=== PATIENT | male | born 1950 | race American Indian/Alaskan Native ===

== ENCOUNTER 2017-02-26 15:18 | Emergency (ER) | payer BC ==
[2017-02-26 15:32] VITALS: TEMP 98.8; O2SAT 96; BMI 24.4
--- NOTE | 2017-02-26 16:08 | ED PDOC ---
Arrival/HPI - General Chief Complaint: Shortness Of Breath Time Seen by Provider: 02/26/17 15:30 Historian: Patient - History of Present Illness Narrative History of Present Illness (Text): 02/26/17 15:53 66 year old male with past medical history of hypertension, HIV , inguinal sarcoma s/p resection presents to [facility] ED today with shortness of breath. Patient reports his shortness of breath had been going on and off for several months. Patient does not have coughs or chest pain. The shortness of breath happens randomly, it is not associated with activity or positional changes. Patient underwent a stress test and a cardiac cath done recently by Dr. Adorno. Cardiac cath was done on 02/20/17 and the results were normal. Patient tried calling to make an appointment with his news clerk but the office was closed until 02/28/17, so patient decided to come to the ED to be evaluated. Patient's does not know his CD4 count, but he was last checked in September stating that his viral count was undetectable. Time/Duration: > month Symptom Course: Intermittent Context: Sitting Past Medical History - Provider Review Nursing Documentation Reviewed: Yes - Infectious Disease Hx of Infectious Diseases: None - Psychiatric Hx Substance Use: No - Anesthesia Hx Anesthesia: No Hx Anesthesia Reactions: No Hx Malignant Hyperthermia: No Family/Social History - Physician Review Nursing Documentation Reviewed: Yes Family/Social History: No Known Family HX Smoking Status: Former Smoker Hx Alcohol Use: Yes Frequency of alcohol use: Socially Hx Substance Use: No Allergies/Home Meds Allergies/Adverse Reactions: Allergies No Known Allergies Allergy (Unverified 02/26/17 15:51) Review of Systems - Physician Review All systems were reviewed & negative as marked: Yes - Review of Systems Constitutional: Normal. absent: Fatigue, Weight Change, Fevers Eyes: Normal. absent: Photophobia ENT: Normal Respiratory: SOB. absent: Cough, Wheezing Cardiovascular: Normal. absent: Chest Pain, Palpitations, Edema Gastrointestinal: Normal. absent: Abdominal Pain, Constipation, Diarrhea Genitourinary Male: Normal. absent: Dysuria, Frequency, Hematuria Musculoskeletal: Normal. absent: Back Pain Skin: Normal. absent: Rash, Pruritis, Skin Lesions Neurological: Normal. absent: Headache, Dizziness, Focal Weakness Endocrine: Normal. absent: Diaphoresis Hemo/Lymphatic: Normal Psychiatric: Normal. absent: Anxiety, Depression Physical Exam Vital Signs Reviewed: Yes Vital Signs Temp Pulse Resp BP Pulse Ox 02/26/17 15:25 98.8 F 78 16 127/81 96 02/26/17 15:19 98.8 F 78 16 127/81 96 Temperature: Afebrile Blood Pressure: Normal Pulse: Regular Respiratory Rate: Normal Appearance: Positive for: Well-Appearing, Non-Toxic, Comfortable Pain Distress: None Mental Status: Positive for: Alert and Oriented X 3 - Systems Exam Head: Present: Atraumatic, Normocephalic Pupils: Present: PERRL Extroacular Muscles: Present: EOMI Conjunctiva: Present: Normal Mouth: Present: Moist Mucous Membranes Pharnyx: Present: Normal Neck: Present: Normal Range of Motion Respiratory/Chest: Present: Clear to Auscultation, Good Air Exchange. No: Respiratory Distress Cardiovascular: Present: Regular Rate and Rhythm, Normal S1, S2. No: Murmurs Abdomen: Present: Normal Bowel Sounds. No: Tenderness, Distention, Peritoneal Signs Upper Extremity: Present: Normal Inspection. No: Cyanosis, Edema Lower Extremity: Present: Normal Inspection. No: Edema Neurological: Present: GCS=15, CN II-XII Intact, Speech Normal Skin: Present: Warm, Dry, Normal Color. No: Rashes Psychiatric: Present: Alert, Oriented x 3, Normal Insight, Normal Concentration Medical Decision Making ED Course and Treatment: 02/26/17 16:17 -CXR -EKG -Cardiac Iso -CBC, CMP -Reassess and disposition 02/26/17 16:50 Progress Note: patient's shortness of breath resolved. No current complaints. Recommended patient to follow up with Dr. Adorno for further cardiac workup. Re-evaluation Time: 16:40 Reassessment Condition: Improved - Lab Interpretations Lab Results: 02/26/17 16:07 02/26/17 16:07 Lab Results 02/26/17 16:07: Sodium 142, Potassium 4.3, Chloride 105, Carbon Dioxide 30, Anion Gap 11, BUN 13, Creatinine 1.1, Est GFR ( Amer) > 60, Est GFR (Non- Af Amer) > 60, Random Glucose 88, Calcium 9.3, Magnesium 2.1, Total Bilirubin 0.8, AST 26, ALT 26, Alkaline Phosphatase 67, Lactate Dehydrogenase 393, Total Creatine Kinase 75, Troponin I Pending, Total Protein 7.3, Albumin 3.7, Globulin 3.6, Albumin/Globulin Ratio 1.0 L 02/26/17 16:07: WBC 4.0 L, RBC 3.78, Hgb 13.1 L, Hct 38.7 L, MCV 102.4, MCH 34.7 , MCHC 33.9, RDW 12.5, Plt Count 126, MPV 11.3 H, Gran % 35.1 L, Lymph % (Auto) 54.7 H, [place] % (Auto) 8.7 H, Eos % (Auto) 1.0 L, Baso % (Auto) 0.5, Gran # 1.42 , Lymph # 2.2, [place] # 0.4, Eos # 0.0, Baso # 0.02 - RAD Interpretation Radiology Orders: 02/26/17 15:52 CHEST PORTABLE [RAD] Stat - EKG Interpretation EKG Interpretation (Text): 02/26/17 16:19 NSR at 72 bpm, no acute ST changes. Read by me Disposition/Present on Arrival - Present on Arrival Any Indicators Present on Arrival: No History of DVT/PE: No History of Uncontrolled Diabetes: No Urinary Catheter: No History of Decub. Ulcer: No History Surgical Site Infection Following: None - Disposition Have Diagnosis and Disposition been Completed?: Yes Diagnosis: Shortness of breath Disposition: HOME/ ROUTINE Disposition Time: 16:43 Patient Plan: Discharge Condition: GOOD Discharge Instructions (ExitCare): Dyspnea (ED)
[2017-02-26 16:17] LABS: BASO # 0.02 K/mm3 (0.0-2.0); BASO % 0.5 % (0.0-3.0); GRAN # 1.42 (1.4-6.5); GRAN % 35.1 % (50.0-68.0); HEMOGLOBIN 13.1 gm/dL (14.0-18.0); LYMPH # 2.2 (1.2-3.4); LYMPH % 54.7 % (22.0-35.0); MEAN CELL VOLUME 102.4 fL (80.0-105.0); MEAN CORPUSCULAR HEMOGLOBIN 34.7 pg (25.0-35.0); MEAN CORPUSCULAR HGB CONC 33.9 g/dl (31.0-37.0); MEAN PLATELET VOLUME 11.3 fl (7.0-11.0); MONO # 0.4 (0.1-0.6); MONO % 8.7 % (1.0-6.0); PLATELET COUNT 126 10^3/uL (120.0-450.0); RBC 3.78 10^6/uL (3.5-6.1); RED CELL DISTRIBUTION WIDTH 12.5 % (11.5-14.5)
[2017-02-26 16:27] LABS: ALBUMIN 3.7 g/dL (3.0-4.8); ALT/SGPT 26 U/L (7-56); AST/SGOT 26 U/L (15-59); BLOOD UREA NITROGEN 13 mg/dL (7-21); CALCIUM 9.3 mg/dL (8.4-10.5); GFR AFRICAN-AMERICAN > 60; GFR NON-AFRICAN AMERICAN > 60; MAGNESIUM 2.1 mg/dL (1.7-2.2)
[2017-02-26 16:39] LABS: TROPONIN I < 0.01 ng/mL
[2017-02-26 16:56] VITALS: BP 134/78; PULSE 72; RESP 18
--- NOTE | 2017-02-26 17:36 | RAD ---
HISTORY: SOB COMPARISON: No prior. FINDINGS: LUNGS: The lungs are hyperinflated and there is peribronchial thickening with chronic changes in both lungs. There is bibasilar atelectasis. No focal consolidation. PLEURA: No significant pleural effusion identified, no pneumothorax apparent. CARDIOVASCULAR: Normal. OSSEOUS STRUCTURES: No significant abnormalities. VISUALIZED UPPER ABDOMEN: Normal. OTHER FINDINGS: None. IMPRESSION: Bibasilar atelectasis. Superimposed pneumonia cannot be excluded. Follow-up is advised. COPD.
--- NOTE | 2017-02-27 08:51 | CARD ---
APPROVED REPORT EKG Measurement Heart [id number] <Conclusion> Normal sinus rhythm Normal ECG
== END 2017-02-26 17:00 | disposition home or self-care (01) ==
LOC: ED 15:18
DX: R06.02 Shortness of breath (principal); I10 Essential (primary) hypertension; Z87.891 Personal history of nicotine dependence

== ENCOUNTER 2017-10-03 18:42 | Emergency (ER) | payer BC ==
[2017-10-03 18:42] VITALS: BMI 24.4
[2017-10-03 18:59] VITALS: TEMP 98.6
--- NOTE | 2017-10-03 19:32 | ED PDOC ---
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 Patient states that the cough, congestion, and shortness of breath are more chronic issues as they have been worsening for the last 4-6 weeks. Patient reports that he is most short of breath after eating, but not while walking. Patient's was diagnosed with influenza and the patient would like to be checked for influenza as well. Patient denies any chest pain, nausea, vomiting, diarrhea, urinary symptoms, back pain, neck pain, headache, dizziness, or any other complaints. Time/Duration: < week Symptom Onset: Gradual Symptom Course: Worsening Context: Home Past Medical History - Provider Review Nursing Documentation Reviewed: Yes - Infectious Disease Hx of Infectious Diseases: None - Pulmonary Hx Chronic Obstructive Pulmonary Disease (COPD): Yes - Genitourinary/Gynecological Hx Urinary Tract Infection: Yes - Psychiatric Hx Substance Use: No - Anesthesia Hx Anesthesia: No Hx Anesthesia Reactions: No Hx Malignant Hyperthermia: No Family/Social History - Physician Review Nursing Documentation Reviewed: Yes Family/Social History: Unknown Family HX Smoking Status: Former Smoker Hx Alcohol Use: Yes Hx Substance Use: No Allergies/Home Meds Allergies/Adverse Reactions: Allergies No Known Allergies Allergy (Unverified 02/26/17 15:51) Home Medications: Home Meds Medication Instructions Recorded Confirmed Acyclovir [Zovirax] 400 mg PO QID 10/03/17 10/03/17 Elviteg/Carlene/Emtric/Tenofo Dis 1 tab PO DAILY 10/03/17 10/03/17 [Stribild] Glycopyrrolate/Formoterol Fum 2 puff IH BID 10/03/17 10/03/17 [Bevespi Aerosphere Inhaler] Review of Systems - Physician Review All systems were reviewed & negative as marked: Yes - Review of Systems Constitutional: Fevers Eyes: Normal ENT: Sinus Congestion Respiratory: SOB, Cough. absent: Sputum Cardiovascular: Normal Gastrointestinal: Normal Genitourinary Male: Normal Musculoskeletal: Myalgias Skin: Normal Neurological: Normal Endocrine: Normal Hemo/Lymphatic: Normal Psychiatric: Normal Physical Exam Vital Signs Reviewed: Yes Vital Signs Temp Pulse Resp BP Pulse Ox 10/03/17 22:41 77 18 117/78 96 10/03/17 21:00 87 16 111/73 95 10/03/17 20:00 73 18 110/62 99 10/03/17 18:54 98.6 F 82 18 117/70 99 Temperature: Afebrile Blood Pressure: Normal Pulse: Regular Respiratory Rate: Normal Appearance: Positive for: Well-Appearing, Non-Toxic, Comfortable Pain Distress: None Mental Status: Positive for: Alert and Oriented X 3 - Systems Exam Head: Present: Atraumatic, Normocephalic Pupils: Present: PERRL Extroacular Muscles: Present: EOMI Conjunctiva: Present: Normal Mouth: Present: Moist Mucous Membranes Pharnyx: Present: Muffled/Hoarse Voice Neck: Present: Normal Range of Motion Respiratory/Chest: Present: Clear to Auscultation, Good Air Exchange. No: Respiratory Distress, Accessory Muscle Use Cardiovascular: Present: Regular Rate and Rhythm, Normal S1, S2. No: Murmurs Abdomen: Present: Normal Bowel Sounds. No: Tenderness, Distention, Peritoneal Signs Back: Present: Normal Inspection Upper Extremity: Present: Normal Inspection. No: Cyanosis, Edema Lower Extremity: Present: Normal Inspection. No: Edema Neurological: Present: GCS=15, CN II-XII Intact, Speech Normal Skin: Present: Warm, Dry, Normal Color. No: Rashes Psychiatric: Present: Alert, Oriented x 3, Normal Insight, Normal Concentration Medical Decision Making ED Course and Treatment: 10/03/17 19:34 Impression: 67 year old male presents to the Emergency department complaining of cough, body aches, fever, shortness of breath, and congestion. Differential Diagnosis included but are not limited to: influenza Plan: -- Chest xray -- Blood culture -- VBG -- Rapid influenza test -- VBG -- Reassess and disposition Prior Visits: Notes and results from previous visits were reviewed. Patient was last seen in the emergency department on 02/26/17 for shortness of breath. Patient was discharged home. Progress Notes: 10/03/17 21:51 EKG: Ordered, reviewed, and independently interpreted the EKG. Rate : 72 BPM Rhythm : NSR Interpretation : Normal intervals, normal axis - Lab Interpretations Lab Results: 10/03/17 20:00 10/03/17 20:00 Lab Results 10/03/17 20:00: Sodium 143, Chloride 103, Potassium 4.2, Carbon Dioxide 31, Anion Gap 14, BUN 15, Creatinine 1.2, Est GFR ( Amer) > 60, Est GFR (Non- Af Amer) > 60, Random Glucose 84, Calcium 9.7, Total Bilirubin 0.6, AST 41, ALT 24, Alkaline Phosphatase 69, Lactate Dehydrogenase 534, Total Creatine Kinase 157, Troponin I < 0.01, NT-Pro-B Natriuret Pep 90.1, Total Protein 8.3, Albumin 3.9, Globulin 4.4, Albumin/Globulin Ratio 0.9 L 10/03/17 20:00: pO2 32, VBG pH 7.32, VBG pCO2 65.0 H, VBG HCO3 34.5 H, VBG Total CO2 36.6 H, VBG O2 Sat (Calc) 61.1, VBG Base Excess 6.1 H, VBG Potassium 3.9, Sodium 139.0, Chloride 111.0 H, Glucose 87, Lactate 0.9, FiO2 21.0, Venous Blood Potassium 3.9 10/03/17 20:00: PT 13.0 H, INR 1.14 H 10/03/17 20:00: WBC 7.7 D, RBC 3.68, Hgb 12.9 L, Hct 38.5 L, MCV 104.6, MCH 35.1 H, MCHC 33.5, RDW 12.8, Plt Count 252, MPV 11.2 H, Gran % 47.3 L, Lymph % ( Auto) 40.9 H, [place] % (Auto) 10.2 H, Eos % (Auto) 1.3 L, Baso % (Auto) 0.3, Gran # 3.65, Lymph # (Auto) 3.2, [place] # (Auto) 0.8 H, Eos # (Auto) 0.1, Baso # (Auto ) 0.02 10/03/17 19:20: Influenza Typ A,B (EIA) Negative for flu a/b - RAD Interpretation Radiology Orders: 10/03/17 22:05 CHEST TWO VIEWS (PA/LAT) [RAD] Stat - PA / ACCOUNTS RECEIVABLE COORDINATOR / Resident Statement MD/DO has reviewed & agrees with the documentation as recorded. - Scribe Statement The provider has reviewed the documentation as recorded by the Scribdenise Morocho Provider Scribe Attestation: All medical record entries made by the Scribe were at my direction and personally dictated by me. I have reviewed the chart and agree that the record accurately reflects my personal performance of the history, physical exam, medical decision making, and the department course for this patient. I have also personally directed, reviewed, and agree with the discharge instructions and disposition. Disposition/Present on Arrival - Present on Arrival Any Indicators Present on Arrival: No History of DVT/PE: No History of Uncontrolled Diabetes: No Urinary Catheter: No History of Decub. Ulcer: No History Surgical Site Infection Following: None - Disposition Have Diagnosis and Disposition been Completed?: Yes Diagnosis: COPD exacerbation Disposition: HOME/ ROUTINE Disposition Time: 22:58 Patient Plan: Discharge Condition: GOOD Discharge Instructions (ExitCare): COPD (Chronic Obstructive Pulmonary Disease ) (ED), Cold Symptoms (ED) Additional Instructions: Mr Anaya- It was a pleasure to care for you. Please speak with your tractor operator helper tomorrow before starting the medrol dose pack. Return to us if worse. Follow up with your tractor operator helper later this week. Palmer- Dr. Chalo Aguilar Referrals: Arthur Alvarado MD [Primary Care Provider] - Follow up with primary Forms: [employer] (Eritrean)
[2017-10-03 20:23] LABS: VENOUS BLOOD GAS BASE EXCESS 6.1 mmol/L (0.0-2.0); VENOUS BLOOD GAS PO2 32 mm/Hg (30-55); VENOUS BLOOD PH 7.32 (7.32-7.43)
[2017-10-03 20:25] LABS: BASO # 0.02 K/mm3 (0.0-2.0); BASO % 0.3 % (0.0-3.0); EOS # 0.1 (0.0-0.7); EOS % 1.3 % (1.5-5.0); GRAN # 3.65 (1.4-6.5); GRAN % 47.3 % (50.0-68.0); HEMOGLOBIN 12.9 g/dL (14.0-18.0); LYMPH # 3.2 (1.2-3.4); LYMPH % 40.9 % (22.0-35.0); MEAN CELL VOLUME 104.6 fl (80.0-105.0); MEAN CORPUSCULAR HEMOGLOBIN 35.1 pg (25.0-35.0); MEAN CORPUSCULAR HGB CONC 33.5 g/dl (31.0-37.0); MEAN PLATELET VOLUME 11.2 fl (7.0-11.0); MONO # 0.8 (0.1-0.6); MONO % 10.2 % (1.0-6.0); RBC 3.68 10^6/uL (3.5-6.1); RED CELL DISTRIBUTION WIDTH 12.8 % (11.5-14.5); WHITE BLOOD COUNT 7.7 10^3/ul (4.5-11.0)
[2017-10-03 20:28] LABS: INR 1.14 (0.93-1.08)
[2017-10-03 20:34] LABS: ALB/GLOB RATIO 0.9 (1.1-1.8); ALBUMIN 3.9 g/dL (3.0-4.8); ALT/SGPT 24 U/L (7-56); AST/SGOT 41 U/L (17-59); BLOOD UREA NITROGEN 15 mg/dL (7-21); CALCIUM 9.7 mg/dL (8.4-10.5); GFR AFRICAN-AMERICAN > 60; GFR NON-AFRICAN AMERICAN > 60
[2017-10-03 20:45] LABS: TROPONIN I < 0.01 ng/mL
[2017-10-03 22:04] LABS: B-TYPE NATRIURETIC PEPTIDE 90.1 pg/mL (0-450)
[2017-10-03 22:42] VITALS: BP 117/78; PULSE 77; RESP 18; O2SAT 96
--- NOTE | 2017-10-04 10:09 | RAD ---
HISTORY: Cough and Congestion COMPARISON: 02/26/2017 TECHNIQUE: Chest PA and lateral FINDINGS: LUNGS: No active pulmonary disease. PLEURA: No significant pleural effusion identified. No pneumothorax apparent. CARDIOVASCULAR: Normal. OSSEOUS STRUCTURES: No significant abnormalities. VISUALIZED UPPER ABDOMEN: Normal. OTHER FINDINGS: None. IMPRESSION: No active disease.
--- NOTE | 2017-10-04 18:14 | CARD ---
APPROVED REPORT EKG Measurement Heart [id number] <Conclusion> Normal sinus rhythm Septal infarct, age undetermined Abnormal ECG
== END 2017-10-03 23:21 | disposition home or self-care (01) ==
LOC: ED 18:42
DX: J44.1 Chronic obstructive pulmonary disease with (acute) exacerbation (principal); I25.10 Atherosclerotic heart disease of native coronary artery without angina pectoris; Z87.891 Personal history of nicotine dependence

== ENCOUNTER 2018-09-09 08:35 | Outpatient (CLI) | payer BC | END 2018-09-09 08:36 | disposition home or self-care (01) | LOC: RAD 08:35 ==

== ENCOUNTER 2018-11-18 15:22 | Emergency (ER) | payer BC ==
[2018-11-18 16:11] VITALS: RESP 18; TEMP 98.1; BMI 23.7
--- NOTE | 2018-11-18 16:12 | ED PDOC ---
Arrival/HPI - General Chief Complaint: Male Genitourinary Historian: Patient, Spouse - History of Present Illness Narrative History of Present Illness (Text): 11/18/18 16:09 68 y/o male, pmh including leiyosaroma/HIV/COPD/bph, nkda, not on any antiplatete or anticoagulant, c/o hematuria and urinary frequency started yesterday with no flank or abdominal pain. Pt. stated that he has blood tinged urine, mid stream, no gum or skin bruising or bleeding, no clot, no flank or abdominal pain, admits urinary frequency, no night sweat, no dizziness, no change in vision, no diarrhea, no other medical or psychological complaints. Past Medical History - Provider Review Nursing Documentation Reviewed: Yes - Infectious Disease Hx of Infectious Diseases: None - Pulmonary Hx Chronic Obstructive Pulmonary Disease (COPD): Yes - Renal Other/Comment: Stricture -- Dr Regina Cat - Genitourinary/Gynecological Hx Urinary Tract Infection: Yes - Psychiatric Hx Substance Use: No - Anesthesia Hx Anesthesia: No Hx Anesthesia Reactions: No Hx Malignant Hyperthermia: No Family/Social History - Physician Review Nursing Documentation Reviewed: Yes Family/Social History: Unknown Family HX Smoking Status: Former Smoker Hx Alcohol Use: Yes Hx Substance Use: No Allergies/Home Meds Allergies/Adverse Reactions: Allergies No Known Allergies Allergy (Unverified 11/18/18 15:50) Home Medications: Home Meds Medication Instructions Recorded Confirmed Acyclovir [Zovirax] 800 mg PO BID 10/03/17 11/18/18 Bictegrav/Emtricit/Tenofov Ala 1 tab PO DAILY 11/18/18 11/18/18 [Biktarvy 50-200-25 mg Tablet] Tamsulosin [Flomax] 1 tab PO DAILY 11/18/18 11/18/18 Review of Systems - Review of Systems Constitutional: absent: Fatigue, Fevers Eyes: absent: Vision Changes ENT: absent: Hearing Changes Respiratory: absent: SOB, Cough Cardiovascular: absent: Chest Pain Gastrointestinal: absent: Abdominal Pain, Nausea, Vomiting Genitourinary Male: Frequency, Hematuria. absent: Dysuria, Urinary Output Changes Musculoskeletal: absent: Arthralgias, Back Pain Skin: absent: Rash, Pruritis Neurological: absent: Headache, Dizziness Psychiatric: absent: Anxiety, Depression, Suicidal Ideation Physical Exam Vital Signs Reviewed: Yes Vital Signs Temp Pulse Resp BP Pulse Ox 03/25/19 15:56 98.1 F 81 18 142/93 H 96 Temperature: Afebrile Blood Pressure: Hypertensive Pulse: Regular Respiratory Rate: Normal Appearance: Positive for: Well-Appearing, Non-Toxic, Comfortable Pain Distress: None Mental Status: Positive for: Alert and Oriented X 3 - Systems Exam Head: Present: Atraumatic, Normocephalic Pupils: Present: PERRL Extroacular Muscles: Present: EOMI Conjunctiva: Present: Normal Mouth: Present: Moist Mucous Membranes Neck: Present: Normal Range of Motion Respiratory/Chest: Present: Clear to Auscultation, Good Air Exchange. No: Respiratory Distress, Accessory Muscle Use Cardiovascular: Present: Regular Rate and Rhythm, Normal S1, S2. No: Murmurs Abdomen: No: Tenderness, Distention, Peritoneal Signs Genitourinary Male: Present: Normal External Genitalia. No: Lesions, Penile Discharge, Testicle Tenderness, Penile Swelling, Masses, Erythema, Hernias, Prostate Tenderness, Prostate Enlargement Back: Present: Normal Inspection. No: CVA Tenderness, Midline Tenderness, Paraspinal Tenderness, Pain with Leg Raise, Decubitus Ulcer Upper Extremity: Present: Normal Inspection. No: Cyanosis, Edema Lower Extremity: Present: Normal Inspection. No: Edema Neurological: Present: GCS=15, CN II-XII Intact, Speech Normal, Motor Func Grossly Intact, Normal Cerebellar Funct, Gait Normal, Memory Normal Skin: Present: Warm, Dry, Normal Color. No: Rashes Psychiatric: Present: Alert, Oriented x 3, Normal Insight, Normal Concentration Medical Decision Making ED Course and Treatment: 11/18/18 16:13 -labs -UA -Observe and reassess 11/18/18 17:36 -Labs are non-significant -PT/PTT is non significant. -UA show +UTI, IV rocephine ordered. -Labs and radiology results discussed with the patient. Pt. is afebrile, no elevation of wbc, no flank pain, normal bun and creatine. -Discharge home with Keflex, pyridium (this may cause your urine to be bright red orange), follow up with your own pmd and urologist within 2 days, return to the ER for any new or worsening signs or symptoms. - PA / ROUTE DELIVERER / Resident Statement MD/DO has reviewed & agrees with the documentation as recorded. Disposition/Present on Arrival - Present on Arrival Any Indicators Present on Arrival: No History of DVT/PE: No History of Uncontrolled Diabetes: No Urinary Catheter: No History of Decub. Ulcer: No History Surgical Site Infection Following: None - Disposition Have Diagnosis and Disposition been Completed?: Yes Diagnosis: Cystitis, Hematuria Disposition: HOME/ ROUTINE Disposition Time: 17:37 Patient Plan: Discharge Condition: GOOD Additional Instructions: -Discharge home with Keflex, pyridium (this may cause your urine to be bright red orange), follow up with your own pmd and urologist within 2 days, return to the ER for any new or worsening signs or symptoms. Prescriptions: Cephalexin [Keflex] 500 mg PO TID #21 capsule Phenazopyridine HCl [Pyridium] 200 mg PO TID PRN #6 tablet PRN Reason: Other Referrals: Regina Cat MD [Staff Provider] - Follow up with primary Forms: [facility] (Austrian), WORK NOTE
[2018-11-18 17:11] LABS: BASO # 0.02 K/mm3 (0.0-2.0); BASO % 0.2 % (0.0-3.0); EOS # 0.1 (0.0-0.7); HEMOGLOBIN 14.2 g/dL (14.0-18.0); LYMPH # 3.5 (1.2-3.4); LYMPH % 39.7 % (22.0-35.0); MEAN CELL VOLUME 99.8 fl (80.0-105.0); MEAN CORPUSCULAR HEMOGLOBIN 32.8 pg (25.0-35.0); MEAN CORPUSCULAR HGB CONC 32.9 g/dl (31.0-37.0); MEAN PLATELET VOLUME 10.4 fl (7.0-11.0); MONO # 0.7 (0.1-0.6); MONO % 7.5 % (1.0-6.0); RBC 4.33 10^6/uL (3.5-6.1); WHITE BLOOD COUNT 8.9 10^3/uL (4.5-11.0)
[2018-11-18 17:19] LABS: PH,URINE 5.5 (4.7-8.0); URINE BILIRUBIN NEGATIVE (NEGATIVE); URINE BLOOD LARGE (NEGATIVE); URINE GLUCOSE (UA) NEGATIVE (NEGATIVE); URINE LEUKOCYTE ESTERASE SMALL Leu/uL (NEGATIVE); URINE PROTEIN >=300 mg/dL (<30 mg/dL)
[2018-11-18 17:23] LABS: ALB/GLOB RATIO 1.2 (1.1-1.8); ALBUMIN 4.1 g/dL (3.0-4.8); AST/SGOT 23 U/L (17-59); BLOOD UREA NITROGEN 15 mg/dL (7-21); CALCIUM 9.6 mg/dL (8.4-10.5); GFR NON-AFRICAN AMERICAN > 60; URINE APPEARANCE TURBID (CLEAR); URINE COLOR RED (YELLOW)
[2018-11-18 17:24] LABS: URINE BACTERIA MANY /hpf; URINE EPITHELIAL CELLS 0 - 2 /hpf (0-5); URINE RBC TNTC /hpf (0-2); URINE WBC TNTC /hpf (0-6)
[2018-11-18] MEDS ORDERED: cefTRIAXone 1 gm 1 GM/100 ML BAG IVPB STA (17:25)
[2018-11-18 17:26] LABS: INR 1.06; PARTIAL THROMBOPLASTIN TIME 32.1 Seconds (26.9-38.3); PROTHROMBIN TIME 11.8 SECONDS (9.4-12.5)
[2018-11-18 17:51] LABS: ALT/SGPT < 6 U/L (7-56)
[2018-11-18 18:43] VITALS: BP 137/90; PULSE 88; O2SAT 98
== END 2018-11-18 19:24 | disposition home or self-care (01) ==
LOC: ED 15:22
DX: N30.91 Cystitis, unspecified with hematuria (principal); Z87.891 Personal history of nicotine dependence; J44.9 Chronic obstructive pulmonary disease, unspecified; Z21 Asymptomatic human immunodeficiency virus [HIV] infection status
CPT/HCPCS: 80053; 81001; 85025; 85610; 85730; 87086; 96365; 99282; J0696